=== PATIENT | male | born 1955 | race Two or more races ===

== ENCOUNTER 2018-08-21 09:46 | Inpatient (IN) | payer BC, OTHER ==
[~2018-08-21] VITALS: Ht 170.2 cm; Wt 97.5 kg
[2018-08-21] MEDS ORDERED: ONDANSETRON HCL 4 MG/2 ML VIAL IV ONE (10:15)
[2018-08-21] MEDS ORDERED: MORPHINE SULFATE 4 MG/ML SYR/VIAL IV ONE (10:15)
[2018-08-21 10:29] LABS: Basophils # (auto) 0 uL; Basophils % (auto) 0.1 % (0.0-2.0); Eosinophils # (auto) 0 uL; Hematocrit 46.6 % (41.0-53.0); Hemoglobin 15.5 g/dL (13.5-17.5); Lymphocytes # (auto) 0.3 uL; Lymphocytes % (auto) 5.8 % (10.0-50.0); Mean Corpuscular Hemoglobin 28.4 pg (28.0-32.0); Mean Corpuscular Hgb Conc. 33.3 g/dL (32.0-36.0); Mean Corpuscular Volume 85.3 fL (80.0-100.0); Monocytes # (auto) 0.5 uL; Monocytes % (auto) 9.5 % (0.0-12.0); Neutrophils # (auto) 4.8 uL; Neutrophils % (auto) 84.6 % (37.0-80.0); Platelet Count (auto) 181 10^3/uL (140-450); Red Blood Cells 5.46 10^6/uL (4.5-5.90); Red Cell Distribution Width 13.7 % (11.8-14.3); White Blood Cell 5.7 10^3/uL (4.4-10.8)
[2018-08-21 10:39] LABS: Alanine Aminotransferase 40 U/L (16-61); Albumin 3.6 g/dL (3.4-5.0); Anion Gap 9 (5-15); Aspartate Aminotransferase 22 U/L (15-37); BUN/Creatinine Ratio 20.4; Blood Urea Nitrogen 22 mg/dL (7-18); Calcium 9.3 mg/dL (8.5-10.1); Carbon Dioxide 28 mmol/L (21-32); Chloride 101 mmol/L (98-107); GFR African American 89 mL/min; GFR Non-African American 73 mL/min; Glucose 260 mg/dL (74-106); Magnesium 2.1 mg/dL (1.6-2.6); Potassium 3.6 mmol/L (3.5-5.1); Sodium 138 mmol/L (136-145)
[2018-08-21 10:44] LABS: Alkaline Phosphatase 57 U/L (45-117); Bilirubin, Total 0.5 mg/dL (0.2-1.0); Total Protein 7.9 g/dL (6.4-8.2)
[2018-08-21] MEDS ORDERED: PANTOPRAZOLE 40 MG/10 ML VIAL IV ONE ×2 (13:34→13:45)
[2018-08-21] MEDS ORDERED: MORPHINE SULFATE 4 MG/ML SYR/VIAL IV PRN (16:30)
[2018-08-21] MEDS ORDERED: DEXTROSE (50%) 50ML SYRG IV PRN (16:30)
[2018-08-21] MEDS ORDERED: MORPHINE SULF INJ 2 MG/ML SYRINGE 1ML IV PRN (16:30)
[2018-08-21] MEDS ORDERED: LORazepam 0.5 MG TAB PO PRN (16:30)
[2018-08-21] MEDS ORDERED: traMADol HCL 50 MG TAB PO PRN (16:30)
[2018-08-21] MEDS ORDERED: TEMAZEPAM 15 MG CAP PO PRN (16:30)
[2018-08-21] MEDS ORDERED: ALBUTEROL SULF 2.5 MG/0.5ML(0.5%) NEB SOLN NEB PRN (16:30)
[2018-08-21] MEDS ORDERED: PROMETHAZINE HCL 25 MG/ML 1ML IV PRN (16:30)
[2018-08-21] MEDS ORDERED: ACETAMINOPHEN 500 MG TAB PO PRN (16:30)
[2018-08-21] MEDS ORDERED: LACTULOSE 20Gm/30ML SOLN PO PRN (16:30)
[2018-08-21] MEDS ORDERED: NITROGLYCERIN 0.4 MG SL TAB SL PRN (16:30)
[2018-08-21 16:45] VITALS: BP 156/98
[2018-08-21 17:00] VITALS: BP 151/90
[2018-08-21] MEDS: METOPROLOL TARTRATE 25 MG TAB PO SCH ×2 (17:01→21:47)
[2018-08-21 17:30] VITALS: BP 151/90
--- NOTE | 2018-08-21 17:30 | NUR ---
Telemetry admit from [facility] admitted to Telemetry unit after SBAR received. Patient oriented to Rayne No, RN primary RN, [facility] unit, room 245, bed A, and unit policies regarding patient care and visiting hours. Patient now on continuous telemetry monitoring, tele box #6 and telemetry reading on arrival to unit is SR-ST. Patient weighed by bedscale and encouraged to call if they need something. All questions and concerns addressed, patient verbalized understanding. Note:
--- NOTE | 2018-08-21 18:05 | NUR ---
INFLUENZA SWAB SENT TO LAB.
[2018-08-21] MEDS: ACCU-CHEK COMFORT CURVE STRIP VI SCH ×2 (18:08→23:33)
[2018-08-21] MEDS: InsuLIN REG 1unit/0.01ml Soln (100units/ml) SC SCH ×2 (18:23→23:45)
--- NOTE | 2018-08-21 18:55 | NUR ---
Dr Steve paged and made aware of CXR results and D-Dimer. Per Dr Steve will place orders. Will continue to monitor. No s/s of distress noted.
[2018-08-21] MEDS: ALBUTEROL SULF 2.5 MG/0.5ML(0.5%) NEB SOLN NEB SCH (19:11)
--- NOTE | 2018-08-21 19:16 | NUR ---
Patient care and report handed off to Pricilla WINSLOW. Made aware Dr Steve to review results and might input orders later. Made aware urine and respiratory culture pending collection.
[2018-08-21] MEDS: CLINDAMYCIN 600MG IV 50 ML IV SCH (21:46)
[2018-08-21] MEDS: ATORVASTATIN 20 MG TAB PO SCH (21:46)
[2018-08-21 22:00] VITALS: BP 118/93
[2018-08-21 22:17] LABS: Amphetamine Screen, Urine NEGATIVE (NEGATIVE); Barbiturate Scree,Urine NEGATIVE (NEGATIVE); Benzodiazephine Screen, Urine NEGATIVE (NEGATIVE); Cannabinoid Screen, Urine POSITIVE (NEGATIVE); Cocaine Screen, Urine NEGATIVE (NEGATIVE); Opiate Scree,Urine POSITIVE (NEGATIVE); Phencyclidine Screen, Urine NEGATIVE (NEGATIVE)
--- NOTE | 2018-08-21 22:54 | NUR ---
Urine sent for drug scree, BLE venous study done with pending result, patient had 2 loose BM since 193 today, will send next loose stool for cdiff as ordered, instruction given to patient.
[2018-08-22] MEDS: ALBUTEROL SULF 2.5 MG/0.5ML(0.5%) NEB SOLN NEB SCH ×4 (00:05→18:11)
--- NOTE | 2018-08-22 00:10 | NUR ---
OXYGEN SATURATION BETWEEN 88-90% - PLACED PT ON 2L NC WITH SATURATION NOW AT 96%.
[2018-08-22 04:56] VITALS: BP 98/59
[2018-08-22] MEDS: InsuLIN REG 1unit/0.01ml Soln (100units/ml) SC SCH ×4 (05:39→23:55)
[2018-08-22] MEDS: ACCU-CHEK COMFORT CURVE STRIP VI SCH ×4 (05:39→23:55)
[2018-08-22] MEDS: CLINDAMYCIN 600MG IV 50 ML IV SCH (05:39)
--- NOTE | 2018-08-22 06:45 | NUR ---
Patient did not c/o chest pain, vital signs are stable, ambulates as tolerated, pending cardiology consult. Patient with distended abdomen, denies any pain, positive bowel sounds, flatus present, loose BM last night, pending small bowel series. The next loose stool needs to be sent to check for cdiff, instruction given to patient.
--- NOTE | 2018-08-22 07:15 | NUR ---
Opening Shift Note Assumed care of patient, awake and alert. No S/S of distress/SOB on 2 LPM via nasal cannula or pain. Instructed on POC and to call for assist PRN, will continue to monitor for changes Q1hr and PRN. Bed in low and locked position, rails up x2, no-slip socks on.
--- NOTE | 2018-08-22 08:00 | NUR ---
PATIENT OFF UNIT FOR PROCEDURE SMALL BOWEL SERIES
[2018-08-22] MEDS ORDERED: GASTROGRAFIN 120 ML SOL ONE (08:07)
[2018-08-22 08:45] VITALS: BP 123/71
[2018-08-22] MEDS: METOPROLOL TARTRATE 25 MG TAB PO SCH ×2 (09:44→21:28)
[2018-08-22] MEDS: PANTOPRAZOLE 40 MG/10 ML VIAL IV SCH (09:48)
[2018-08-22] MEDS: LEVOFLOXACIN 500MG 100 ML IV SCH (09:49)
[2018-08-22] MEDS ORDERED: ENOXAPARIN SOD 40 MG/0.4 ML SYRINGE SC SCH (10:00)
[2018-08-22] MEDS ORDERED: ENALAPRIL MALEATE 10 MG TAB PO SCH (10:00)
--- NOTE | 2018-08-22 10:15 | NUR ---
DR TYLER AT BEDSIDE NEW ORDERS ADDED.
[2018-08-22] MEDS ORDERED: IOHEXOL 350 MG/ML 100ML IJ ONE (10:16)
--- NOTE | 2018-08-22 11:35 | NUR ---
PATIENT OFF UNIT FOR PROCEDURE CT ANGIO CHEST
[2018-08-22 12:42] VITALS: BP 147/84
--- NOTE | 2018-08-22 12:45 | NUR ---
DR GRIFFIN AT BEDSIDE NEW ORDERS ADDED
[2018-08-22] MEDS: SODIUM CHLORIDE 0.9% 1,000 ML IV SCH (13:00)
[2018-08-22] MEDS: metroNIDAZOLE 500MG/100ML 100 ML IV SCH ×2 (14:00→21:23)
--- NOTE | 2018-08-22 14:30 | NUR ---
STOOL SPECIMEN COLLECTED SENT FOR C-DIFF
--- NOTE | 2018-08-22 15:45 | NUR ---
URINE SPECIMEN COLLECTED
[2018-08-22 16:18] LABS: Urine Bacteria NONE SEEN /hpf (None Seen); Urine Blood 1+ /uL (Negative); Urine Mucus FEW (None Seen); Urine WBC <1 /hpf (0 - 3)
[2018-08-22 16:25] LABS: Urine Specific Gravity > 1.050 (1.001-1.035)
--- NOTE | 2018-08-22 16:27 | NUR ---
Assumed care of the patient. Reports received from Gloria WINSLOW. Patient is alert and oriented, not in respiratory distress. No complains of pain. Awaiting small bowel series results. Will continue to monitor.
--- NOTE | 2018-08-22 16:27 | NUR ---
ENDORSED CARE TO GOLDY RAYO
[2018-08-22 16:39] VITALS: BP_SYST 110; BP_SYST 146; BP_SYST 147; BP_DIAS 72; BP_DIAS 79; BP_DIAS 84
--- NOTE | 2018-08-22 17:54 | NUR ---
Spoke to patient's Chrissy over the phone, she will bring the list of home medications tomorrow. Will continue care.
[2018-08-22] MEDS: ATORVASTATIN 20 MG TAB PO SCH (21:23)
[2018-08-22 22:00] VITALS: BP 136/68
[2018-08-23] MEDS: ALBUTEROL SULF 2.5 MG/0.5ML(0.5%) NEB SOLN NEB SCH ×4 (00:19→18:00)
[2018-08-23] MEDS: metroNIDAZOLE 500MG/100ML 100 ML IV SCH ×3 (05:16→21:55)
[2018-08-23] MEDS: InsuLIN REG 1unit/0.01ml Soln (100units/ml) SC SCH ×3 (05:17→18:00)
[2018-08-23] MEDS: SODIUM CHLORIDE 0.9% 1,000 ML IV SCH ×2 (05:17→21:58)
[2018-08-23] MEDS: ACCU-CHEK COMFORT CURVE STRIP VI SCH ×3 (05:18→18:08)
[2018-08-23 06:27] LABS: Basophils # (auto) 0 uL; Basophils % (auto) 0.4 % (0.0-2.0); Eosinophils # (auto) 0.2 uL; Eosinophils % (auto) 3.4 % (0.0-7.0); Hematocrit 39.2 % (41.0-53.0); Hemoglobin 12.8 g/dL (13.5-17.5); Lymphocytes # (auto) 0.9 uL; Lymphocytes % (auto) 19.8 % (10.0-50.0); Mean Corpuscular Hemoglobin 28.1 pg (28.0-32.0); Mean Corpuscular Hgb Conc. 32.7 g/dL (32.0-36.0); Mean Corpuscular Volume 85.9 fL (80.0-100.0); Monocytes # (auto) 0.6 uL; Monocytes % (auto) 12.3 % (0.0-12.0); Neutrophils % (auto) 64.1 % (37.0-80.0); Platelet Count (auto) 148 10^3/uL (140-450); Red Blood Cells 4.56 10^6/uL (4.5-5.90); Red Cell Distribution Width 13.8 % (11.8-14.3); White Blood Cell 4.6 10^3/uL (4.4-10.8)
[2018-08-23 06:33] LABS: BUN/Creatinine Ratio 18.1; Calcium 8.1 mg/dL (8.5-10.1); Potassium 3.6 mmol/L (3.5-5.1)
[2018-08-23 08:49] VITALS: BP 125/62
[2018-08-23] MEDS: PANTOPRAZOLE 40 MG/10 ML VIAL IV SCH (09:39)
[2018-08-23] MEDS: LEVOFLOXACIN 500MG 100 ML IV SCH (09:39)
[2018-08-23] MEDS: ASPirin 81 mg TAB PO SCH (09:39)
[2018-08-23] MEDS: METOPROLOL TARTRATE 25 MG TAB PO SCH ×2 (09:40→22:00)
--- NOTE | 2018-08-23 10:47 | NUR ---
GI consult Dr. Trinidad at bedside, patient is advised. For NG tube placement to LIS.
[2018-08-23 10:51] LABS: INR 0.94 (0.9-1.15); Prothrombin Time 10.1 sec (9.27-12.13)
--- NOTE | 2018-08-23 11:45 | NUR ---
Nasogastric tube insertion Patient educated on need for NG tube. All questions addressed. NGT inserted per MD order. Placement verified by aspiration of stomach contents, auscultation. Will do chest xray.
--- NOTE | 2018-08-23 12:56 | NUR ---
PT. REFUSED MN. TX. AT THIS TIME. PT. STATE TX'S ARE DOING NOTHING FOR HIM, HE ALSO STATES THAT THEY MAKE HIM FEEL WORSE. NO TX. GIVEN, HR=71,RR=18,SP02=93% ON RA. INSTRUCTED PT. TO CALL IF HE NEEDS A TX.
[2018-08-23 13:00] VITALS: BP 143/78
--- NOTE | 2018-08-23 15:45 | NUR ---
Patient accidentally pulled out NG tube. Reinserted NG tube Fr. 16, patient tolerated well. Will do another chest X-ray to conform placement.
--- NOTE | 2018-08-23 16:00 | NUR ---
Chest X-ray portable to confirm NG tube placement done. Waiting for results.
[2018-08-23 16:32] VITALS: BP 143/77
[2018-08-23] MEDS ORDERED: PIO30T PO (17:35)
[2018-08-23] MEDS ORDERED: METF-372 PO (17:35)
[2018-08-23] MEDS ORDERED: GLIP-116 PO ×2 (17:35)
[2018-08-23] MEDS ORDERED: LISI-646 PO (17:35)
[2018-08-23] MEDS ORDERED: SIMV-13 PO (17:35)
--- NOTE | 2018-08-23 18:09 | NUR ---
Still awaiting Chest X-ray results to check for placement. NG tube placement confirmed upon auscultation and aspiration of gastric contents. Hooked NG tube to LIS. Will continue care.
--- NOTE | 2018-08-23 19:21 | NUR ---
Respiratory note: PT REFUSED SCHED MED NEB TX. PT CURRENTLY ON ROOM AIR: HR 66, RR 18, SPO2 93%. PT SHOWS NO S/S OF ANY RESPIRATORY DISTRESS. WILL CONTINUE TO MONITOR.
--- NOTE | 2018-08-23 20:00 | NUR ---
Opening Shift Note Assumed care of patient, awake and alert. No S/S of distress/SOB or pain. Patient with NGT on right nare connected to LIWS, still waiting for Xray result, on 2L O2 via NC, kept NPO. Instructed on POC and to call for assist PRN, will continue to monitor for changes Q1hr and PRN.
--- NOTE | 2018-08-23 20:49 | NUR ---
Paged hospitalist to confirm NGT placement since xray result states that NGT tip is now well visualized. Waiting for call back.
[2018-08-23 22:00] VITALS: BP 161/93
[2018-08-23] MEDS: ATORVASTATIN 20 MG TAB PO SCH (22:00)
--- NOTE | 2018-08-23 22:54 | NUR ---
Spoke with hospitalist Avery and notified her of the xray result regarding NGT placement. Ok to leave NGT to low intermittent wall suction per hospitalist.
--- NOTE | 2018-08-24 01:03 | NUR ---
Respiratory note: PT REFUSED SCHED MEB NEB, PT IS APPEARS TO BE SLEEPING COMFORTABLY WITH NO S/S OF ANY RESPIRATORY DISTRESS. WILL CONTINUE TO MONITOR.
--- NOTE | 2018-08-24 04:45 | NUR ---
Patient accidentally pulled NGT, reinserted Fr 16 NG tube, patient tolerated well, placement verified by auscultation and aspirating gastric contents. Ordered CXR per protocol to confirm NGT placement.
[2018-08-24 05:00] VITALS: BP 141/78
[2018-08-24] MEDS: InsuLIN REG 1unit/0.01ml Soln (100units/ml) SC SCH ×4 (05:19→17:51)
[2018-08-24] MEDS: metroNIDAZOLE 500MG/100ML 100 ML IV SCH (05:19)
[2018-08-24] MEDS: ACCU-CHEK COMFORT CURVE STRIP VI SCH ×4 (05:19→17:51)
[2018-08-24 06:52] LABS: Potassium 3.5 mmol/L (3.5-5.1)
[2018-08-24 06:54] LABS: Hemoglobin 13.2 g/dL (13.5-17.5); Mean Corpuscular Hemoglobin 28.3 pg (28.0-32.0); Platelet Count (auto) 157 10^3/uL (140-450); Red Blood Cells 4.65 10^6/uL (4.5-5.90); Red Cell Distribution Width 13.5 % (11.8-14.3); White Blood Cell 5.6 10^3/uL (4.4-10.8)
[2018-08-24 06:56] LABS: Basophils % (manual) 0 (0.0-2.0); Promyelocytes % 0
[2018-08-24 06:57] LABS: Blast Cells 0; Reactive Lymphocytes 0
[2018-08-24 06:59] LABS: Albumin 2.9 g/dL (3.4-5.0); BUN/Creatinine Ratio 14.3; Bilirubin, Total 0.3 mg/dL (0.2-1.0); Calcium 8.4 mg/dL (8.5-10.1); Total Protein 6.4 g/dL (6.4-8.2)
[2018-08-24] MEDS: ALBUTEROL SULF 2.5 MG/0.5ML(0.5%) NEB SOLN NEB SCH ×4 (07:05→18:00)
[2018-08-24] MEDS ORDERED: IODIXANOL 320MG/ML 100ML BTL IV ONE (07:30)
[2018-08-24] MEDS ORDERED: LIDOCAINE 2%HCL (LOCAL ANESTH.) INJ 20ML MDV ONE (07:30)
--- NOTE | 2018-08-24 07:30 | NUR ---
OPENING NOTE ASSUMED CARE OF PT. PT IS SITTING ON BED, HOB HIGH-FOWLERS. PT IS A&O X4. ON ROOM AIR, O2 SATURATION 95%. NO SIGNS OF SOB/DISTRESS NOTED. TELE #6, HR 68. SAFETY PRECAUTIONS IN PLACE INCLUDING BED SET TO LOWEST POSITION/LOCKED. BEDSIDE RAILS UP X2. CALL LIGHT WITHIN REACH. INSTRUCTED PT TO CALL FOR ASSISTANCE. DISCUSSED POC WITH PT. PT VERBALIZED UNDERSTANDING. WILL CONTINUE TO MONITOR Q 1 HR AND PRN.
--- NOTE | 2018-08-24 07:49 | NUR ---
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
[2018-08-24] MEDS ORDERED: ANGIOMAX 250 MG VIAL IV ONE (08:10)
[2018-08-24] MEDS ORDERED: VERAPAMIL 2.5MG/ML INJ 2ML VIAL IV ONE (08:11)
[2018-08-24] MEDS ORDERED: MIDAZOLAM HCL 1MG/1ML-2 ML VIAL ONE (08:11)
[2018-08-24] MEDS ORDERED: fentaNYL CITRATE 100 MCG/2 ML VL ONE (08:11)
[2018-08-24] MEDS ORDERED: SODIUM CHL 0.9% 0 ML ONE (08:11)
[2018-08-24] MEDS ORDERED: HEPARIN SODIUM (PORCINE) 5000 UNITS/ML 1ML VIAL ONE (08:36)
[2018-08-24 08:47] VITALS: BP 147/74
[2018-08-24 09:15] VITALS: BP 147/74
--- NOTE | 2018-08-24 09:50 | NUR ---
PATIENT BACK ON UNIT VIA BED FROM ASSET PROTECTION PROFESSIONAL. NO SIGNS OF SOB/DISTRESS NOTED. WILL CONTINUE TO MONITOR.
--- NOTE | 2018-08-24 10:05 | NUR ---
RE: VASC BAND REMOVED 2 ML
[2018-08-24] MEDS: LEVOFLOXACIN 500MG 100 ML IV SCH (10:08)
[2018-08-24] MEDS: ASPirin 81 mg TAB PO SCH (10:08)
[2018-08-24] MEDS: PANTOPRAZOLE 40 MG/10 ML VIAL IV SCH (10:08)
[2018-08-24] MEDS: METOPROLOL TARTRATE 25 MG TAB PO SCH ×2 (10:09→22:25)
[2018-08-24 10:10] LABS: Band Neutrophils % (manual) 3; Eosinophils % (manual) 6 (0-7); Lymphocytes % (manual) 25 (10.0-50.0); Metamyelocytes % 1; Monocytes % (manual) 4 (0-12); Myelocytes % 2
--- NOTE | 2018-08-24 10:20 | NUR ---
RE: VASC BAND REMOVED 2 ML
--- NOTE | 2018-08-24 10:35 | NUR ---
RE: VASC BAND REMOVED 2 ML
--- NOTE | 2018-08-24 10:50 | NUR ---
RE: VASC BAND REMOVED 2 ML
--- NOTE | 2018-08-24 11:05 | NUR ---
RE: VASC BAND REMOVED 2 ML Addendum: 08/24/18 at 1249 by Dawna Santos RN VASC BAND REMOVED, COVERED WITH 2X2 GAUZE AND TEGADERM DRESSING. WILL CONTINUE TO MONITOR. EDUCATED PATIENT ON AFTERCARE. NO HEAVY LIFTING, PUSHING FOR ONE WEEK, DO NOT USE AFFECTED WRIST TO SHIFT WEIGHT. NO SUBMERGING SITE. MAY REMOVE DRESSING AFTER 24 HOURS.
[2018-08-24 13:00] VITALS: BP 149/80
--- NOTE | 2018-08-24 13:30 | NUR ---
PATIENT ACCIDENTALLY PULLED OUT NGT. SPOKE TO DR. NOLEN AT NURSES STATION. PER DR. NOELN PATIENT CAN HAVE CLEAR LIQUIDS. NGT DOES NOT TO BE REPLACED.
--- NOTE | 2018-08-24 14:37 | NUR ---
Nutrition Assessment Notes please see attached link for complete assessment Est. Needs ABW 82 K-2049kcal (23-25 kcal/kgBW), 82-90 gms pro (1.0-1.1 gms/kgBW). Will continue to monitor pertinent labs and reassess nutrient need prn Addendum: 08/24/18 at [address] Amended: Links added.
[2018-08-24] MEDS: SODIUM CHLORIDE 0.9% 1,000 ML IV SCH (15:00)
[2018-08-24 16:36] VITALS: BP 133/82
--- NOTE | 2018-08-24 18:00 | NUR ---
Respiratory note: PT REFUSED SCHEDULED MED NEB TX AT THIS TIME STATING HE JUST WANTS TO GO HOME. HR 70, RR 16, SPO2 97% ON 3L NC, BS CLEAR/DIMINISHED. NO SIGNS OF DISTRESS NOTED. ADVISE PT TO PLEASE CALL IF NEEDED.
--- NOTE | 2018-08-24 19:28 | NUR ---
ENDORSED CARE TO GOLDY SOSA.
[2018-08-24 22:00] VITALS: BP 155/78
[2018-08-24] MEDS: ATORVASTATIN 20 MG TAB PO SCH (22:25)
[2018-08-25] MEDS: ACCU-CHEK COMFORT CURVE STRIP VI SCH ×3 (00:23→11:41)
--- NOTE | 2018-08-25 00:25 | NUR ---
ADVANCE DIET TO FULL LIQUID PER DR MONTEZ. PATIENT WAS TOLERATING CLEAR LIQUIDS, PASSING GAS, ENCOURAGED TO AMBULATE AROUND HALLWAY, PT DENIES ANY PAIN.
[2018-08-25 05:00] VITALS: BP 158/73
[2018-08-25] MEDS: InsuLIN REG 1unit/0.01ml Soln (100units/ml) SC SCH ×3 (06:00→11:41)
[2018-08-25] MEDS: ALBUTEROL SULF 2.5 MG/0.5ML(0.5%) NEB SOLN NEB SCH ×3 (06:30→11:48)
--- NOTE | 2018-08-25 06:33 | NUR ---
Respiratory note: PATIENT REFUSED 0600 MED-NEB AT THIS TIME STATING HE FELT FINE AND JUST WANTED TO SLEEP. HE WAS IN NO ACUTE RESPIRATORY DISTRESS AT TIME OF REFUSAL. PATIENT WAS INFORMED HIS NEXT TX WOULD NOT BE UBTIL 1000, HE WAS IN AGREEMENT WITH THIS. GOLDY SOSA MADE AWARE OF NON ADMINISTRATION OF MEDS.
[2018-08-25 07:21] LABS: BUN/Creatinine Ratio 12.2; Calcium 8.5 mg/dL (8.5-10.1); Magnesium 2.1 mg/dL (1.6-2.6); Potassium 3.5 mmol/L (3.5-5.1)
[2018-08-25 07:31] LABS: Basophils # (auto) 0 uL; Basophils % (auto) 0.4 % (0.0-2.0); Eosinophils # (auto) 0.1 uL; Eosinophils % (auto) 2.3 % (0.0-7.0); Hemoglobin 12.9 g/dL (13.5-17.5); Lymphocytes % (auto) 15.9 % (10.0-50.0); Mean Corpuscular Hemoglobin 28.5 pg (28.0-32.0); Mean Corpuscular Volume 86.3 fL (80.0-100.0); Monocytes # (auto) 0.4 uL; Monocytes % (auto) 7.3 % (0.0-12.0); Neutrophils # (auto) 4.5 uL; Neutrophils % (auto) 74.1 % (37.0-80.0); Platelet Count (auto) 160 10^3/uL (140-450); Red Blood Cells 4.51 10^6/uL (4.5-5.90); Red Cell Distribution Width 13.6 % (11.8-14.3); White Blood Cell 6.1 10^3/uL (4.4-10.8)
[2018-08-25 07:36] LABS: Partial Thromboplastin Time 24.7 sec (23.78-33.04); Prothrombin Time 10.7 sec (9.27-12.13)
--- NOTE | 2018-08-25 07:40 | NUR ---
OPENING NOTE ASSUMED CARE OF PT. PT IS SITTING ON BED, HOB HIGH-FOWLERS. PT IS A&O X4. ON ROOM AIR, O2 SATURATION 93%. NO SIGNS OF SOB/DISTRESS NOTED. TELE #6, HR 65. SAFETY PRECAUTIONS IN PLACE INCLUDING BED SET TO LOWEST POSITION/LOCKED. BEDSIDE RAILS UP X2. CALL LIGHT WITHIN REACH. INSTRUCTED PT TO CALL FOR ASSISTANCE. DISCUSSED POC WITH PT. PT VERBALIZED UNDERSTANDING. WILL CONTINUE TO MONITOR Q 1 HR AND PRN.
[2018-08-25 09:00] VITALS: BP 149/70
[2018-08-25] MEDS: ASPirin 81 mg TAB PO SCH (10:21)
[2018-08-25] MEDS: PANTOPRAZOLE 40 MG/10 ML VIAL IV SCH (10:21)
[2018-08-25] MEDS: SODIUM CHLORIDE 0.9% 1,000 ML IV SCH (10:21)
[2018-08-25] MEDS: METOPROLOL TARTRATE 25 MG TAB PO SCH (10:21)
--- NOTE | 2018-08-25 11:49 | NUR ---
Respiratory note: PATIENT REFUSED 1200 MED-NEB AT THIS TIME STATING HE FELT FINE AND DIDN'T FEEL A NEED FOR IT. HE WAS IN NO ACUTE RESPIRATORY DISTRESS AT TIME OF REFUSAL. PATIENT WAS INFORMED HIS NEXT TX WOULD NOT BE UNTIL 1800, HE WAS IN AGREEMENT WITH THIS. GOLDY PICHARDO MADE AWARE OF NON ADMINISTRATION OF MEDS.
--- NOTE | 2018-08-25 12:20 | NUR ---
PAGED DR. NOLEN, REGARDING CLEARANCE FOR DISCHARGE. AWAITING CALL BACK.
[2018-08-25 13:00] VITALS: BP 119/86
[2018-08-25] MEDS ORDERED: MET25T PO (13:18)
[2018-08-25] MEDS ORDERED: ASPI81CH43 PO (13:18)
--- NOTE | 2018-08-25 14:10 | NUR ---
SPOKE TO DR. NOLEN AT NURSES STATION. PER DR. NOLEN PATIENT IS CLEARED FROM HIS STANDPOINT.
[2018-08-25 14:45] VITALS: BP 119/89
--- NOTE | 2018-08-25 15:46 | NUR ---
CHOICE FAXED [facility] ORDER FOR [facility], SO THEY CAN GIVE AUTH TO [facility]
--- NOTE | 2018-08-25 15:47 | NUR ---
[facility] HAS ACCEPTED PT AND WILL START ON 08-27 19 PER GALINA MOJICA AT [facility]
--- NOTE | 2018-08-25 16:11 | NUR ---
Discharge instructions given as ordered. Encourage to follow up with Dr. Avelar, [place], [id number] [facility]. [address], [place] [address]. . All questions and concerns addressed with patient. Patient verbalized understanding. No home medications held in Pharmacy and no vaccines given. IV removed with catheter intact, pressure dressing applied. Telemetry unit #6 returned to ICU.
--- NOTE | 2018-08-25 16:46 | NUR ---
Patient taken to vehicle via wheelchair with all personal belongings, accompanied by staff and family member. No distress noted at time of departure.
[2018-08-25 17:00] VITALS: BP 146/74
== END 2018-08-25 16:46 | disposition home health service (06) | DRG 281 ==
LOC: ER 09:49 → TELE 16:23 → TELE-EAST 17:27
PROVIDERS: ADMIT Internal Medicine; ATTEND Internal Medicine
PROC: 4A023N7 Measurement of Cardiac Sampling and Pressure, Left Heart, Percutaneous Approach (ICD-10-PCS; principal; 2018-08-24)
PROC: B2111ZZ Fluoroscopy of Multiple Coronary Arteries using Low Osmolar Contrast (ICD-10-PCS; 2018-08-24)
PROC: B2151ZZ Fluoroscopy of Left Heart using Low Osmolar Contrast (ICD-10-PCS; 2018-08-24)
DX: I21.19 ST elevation (STEMI) myocardial infarction involving other coronary artery of inferior wall (principal); K56.609 Unspecified intestinal obstruction, unspecified as to partial versus complete obstruction; K56.7 Ileus, unspecified; E66.9 Obesity, unspecified; I25.110 Atherosclerotic heart disease of native coronary artery with unstable angina pectoris; K59.00 Constipation, unspecified; I10 Essential (primary) hypertension; K21.9 Gastro-esophageal reflux disease without esophagitis; E11.9 Type 2 diabetes mellitus without complications; E78.5 Hyperlipidemia, unspecified; I25.2 Old myocardial infarction; Z82.3 Family history of stroke; Z83.3 Family history of diabetes mellitus; Z79.82 Long term (current) use of aspirin; Z79.899 Other long term (current) drug therapy; Z87.891 Personal history of nicotine dependence; Z68.33 Body mass index [BMI] 33.0-33.9, adult
CPT/HCPCS: 36415; 71045; 71046; 71275; 74018; 74176; 74250; 80048; 80053; 80061; 80307; 81001; 82550; 82962; 83036; 83690; 83735; 83880; 84484; 85007; 85025; 85027; 85379; 85610; 85730; 86141; 86850; 86900; 86901; 87040; 87070; 87205; 87493; 87804; 93005; 93306; 93970; 94640; 94761; 96374; 96375; A6257; C9113; G0378; J1815; J1956; J2250; J2405; J3490; Q9967